=== PATIENT | male | born 1990 | race Caucasian/White ===

== ENCOUNTER 2025-08-08 17:07 | Emergency (ER) | payer OTHER ==
[~2025-08-08] VITALS: Ht 185.4 cm; Wt 74.8 kg
[2025-08-08] MEDS ORDERED: KETOROLAC TROMETHAMINE 15 MG/ML VIAL ONE (18:30)
[2025-08-08] MEDS ORDERED: dexaMETHasone SOD PHOSPHATE 1 ML ONE (18:30)
[2025-08-08] MEDS ORDERED: AMOX/CLAVULANATE 875 MG TABLET ONE (18:31)
[2025-08-08] MEDS: dexaMETHasone SOD PHOSPHATE 10 MG/ML VIAL IM ONE (18:36)
[2025-08-08] MEDS: AMOX/CLAVULANATE 875 MG TABLET PO ONE (18:37)
[2025-08-08] MEDS ORDERED: IBUP-1955 PO (18:37)
[2025-08-08] MEDS: KETOROLAC TROMETHAMINE 15 MG/ML VIAL IM ONE (18:37)
[2025-08-08] MEDS ORDERED: AMOX-430 PO (18:37)
[2025-08-08 19:04] VITALS: BP 145/85; TEMP 98.1; O2SAT 100
== END 2025-08-08 19:04 | disposition home or self-care (01) ==
LOC: ER 17:21
DX: R59.0 Localized enlarged lymph nodes (principal); Z20.822 Contact with and (suspected) exposure to COVID-19
CPT/HCPCS: 99284; 87426; 96372; 87804 ×2; 87070; 87880; J1885; J1100; 86403-TC